=== PATIENT | female | born 1975 | race Caucasian/White ===

== ENCOUNTER → 2017-07-19 | Outpatient (CLI) | payer MEDICAID ==
[~2017-07-19] MED LIST: DILAUDID4 MG PO; FEROSUL325 MG OR; FERROUS SULFAT325 M1 PO; FIORICET 325 MG1 TAB PO; IRON TABLETS325 MG PO; KLONOPIN1 MG PO; LEVOTHYROXINE0.1 M2 PO; LEVOTHYROXINE0.15 M2 PO; PHENERGAN 25MG.25 M1 PO; TYLENOL W/CODEI1 TA2 PO; VISTARIL25 MG PO
== END ==
LOC: LAB 16:06
DX: E03.9 Hypothyroidism, unspecified (principal)